=== PATIENT | male | born 1940 | race Caucasian/White ===

== ENCOUNTER 2016-12-18 20:55 | Inpatient (IN) | payer MEDICARE ==
[~2016-12-18] VITALS: Ht 170.2 cm; Wt 74.5 kg
[~2016-12-18 20:55] MED LIST: DILTIAZEM120 M1 PO; KEFLEX500 M1 PO; LEVOTHYROXIN50 MC1 PO; ROBITUSSIN AC10 ML PO; ULTRAM50 MG OR
[2016-12-18 21:27] LABS: HEMATOCRIT 38.7 % (39.0-50.0); HEMOGLOBIN 14.4 g/dl (14.0-18.0); IMMATURE GRANULOCYTES 0.6 % (0.0-1.0); MEAN CELL VOLUME 98.2 fL CALC (80.0-100.0); MEAN CORPUSCULAR HGB 36.5 pG CALC (26.0-32.0); MEAN CORPUSCULAR HGB CONC 37.2 g/L CALC (32.0-36.0); NEUT# 3.34 thou/uL (1.82-7.42); RED BLOOD COUNT 3.94 mill/uL (4.70-6.10); RED CELL DISTRI WIDTH 13.4 % (11.5-15.5)
[2016-12-18 22:29] LABS: ACT PARTIAL THROMBO TIME 34.1 SECONDS (20.0-32.5); INTERNATIONAL NORMALIZED RATIO 1.1 RATIO (0.7-1.3); PROTHROMBIN TIME 12.3 SECONDS (9.0-12.5)
[2016-12-18 22:43] LABS: ALBUMIN 3.9 g/dL (3.2-5.0); ALKALINE PHOSPHATASE 66 u/l (38-126); ANION GAP 17 (6-22 (CALC)); BILIRUBIN, TOTAL 1.8 mg/dL (0.0-1.4); BUN 6 mg/dL (8-23); BUN/CREATININE RATIO 9 (12-20 (CALC)); CALCIUM 9.2 mg/dL (8.4-10.2); CARBON DIOXIDE 24 mmol/l (22-30); CHLORIDE 87 mmol/l (95-108); CREATININE 0.7 mg/dL (0.7-1.3); GFR > 60 ML/MIN (>=60 (CALC)); GFR FOR AFR.AMER. > 60 ML/MIN (>=60 (CALC)); GLUCOSE 87 mg/dL (82-115); POTASSIUM 4.3 mmol/l (3.5-5.1); SGOT/AST 50 u/l (19-48); SGPT/ALT 40 u/l (11-66); SODIUM 124 mmol/l (137-146); TOTAL PROTEIN 6.5 g/dL (6.3-8.2)
[2016-12-18 22:55] LABS: MYOGLOBIN 43 ng/mL (0 - 121)
[2016-12-18] MEDS ORDERED: SYMBICORT1 AE1 IN (22:57)
[2016-12-18] MEDS ORDERED: COMBIVENT RESPIMAT IN (22:58)
[2016-12-18] MEDS ORDERED: MEGESTROL AC20 MG PO (22:58)
[2016-12-18] MEDS ORDERED: METOPROL TAR25 MG PO (22:59)
[2016-12-18 23:55] VITALS: BP 118/74
[2016-12-19 04:05] VITALS: BP 130/86
[2016-12-19 08:24] VITALS: BP 92/55
[2016-12-19 11:14] LABS: HEMATOCRIT 41.2 % (39.0-50.0); HEMOGLOBIN 14.6 g/dl (14.0-18.0); MEAN CORPUSCULAR HGB 35.8 pG CALC (26.0-32.0); MEAN CORPUSCULAR HGB CONC 35.4 g/L CALC (32.0-36.0); RED BLOOD COUNT 4.08 mill/uL (4.70-6.10); RED CELL DISTRI WIDTH 13.4 % (11.5-15.5)
[2016-12-19 11:15] VITALS: BP 93/67
[2016-12-19 11:22] LABS: ALKALINE PHOSPHATASE 63 u/l (38-126); ANION GAP 21 (6-22 (CALC)); BILIRUBIN, TOTAL 1.4 mg/dL (0.0-1.4); BUN 9 mg/dL (8-23); BUN/CREATININE RATIO 12 (12-20 (CALC)); CALCIUM 9.1 mg/dL (8.4-10.2); CARBON DIOXIDE 19 mmol/l (22-30); CHLORIDE 91 mmol/l (95-108); CREATININE 0.7 mg/dL (0.7-1.3); GFR > 60 ML/MIN (>=60 (CALC)); GFR FOR AFR.AMER. > 60 ML/MIN (>=60 (CALC)); GLUCOSE 169 mg/dL (82-115); POTASSIUM 4.4 mmol/l (3.5-5.1); SGOT/AST 51 u/l (19-48); SGPT/ALT 37 u/l (11-66); SODIUM 127 mmol/l (137-146); TOTAL PROTEIN 6.7 g/dL (6.3-8.2)
[2016-12-19 14:45] LABS: TSH, 3RD GENERATION 5.08 uIU/mL (0.47 - 4.68)
[2016-12-19 16:07] VITALS: BP 95/69
[2016-12-19 18:55] VITALS: BP 102/62
[2016-12-20 00:02] VITALS: BP 130/72
[2016-12-20 04:59] LABS: URINE BILIRUBIN - DIPSTICK NEGATIVE (NEGATIVE); URINE BLOOD DIPSTICK TRACE-INTACT (NEGATIVE); URINE CLARITY CLEAR; URINE COLOR YELLOW; URINE GLUCOSE - DIPSTICK >=1000 mg/dL (NEGATIVE); URINE KETONE NEGATIVE (NEGATIVE); URINE LEUK ESTERASE NEGATIVE (NEGATIVE); URINE NITRITE - DIPSTICK NEGATIVE (Negative); URINE PROTEIN - DIPSTICK NEGATIVE (NEG-TRACE); URINE SPECIFIC GRAVITY <=1.005; URINE UROBILINOGEN - DIPSTICK 0.2 E.U./dL (0.2)
[2016-12-20 05:07] LABS: BUN 13 mg/dL (8-23); BUN/CREATININE RATIO 18 (12-20 (CALC)); CALCIUM 9.5 mg/dL (8.4-10.2); CARBON DIOXIDE 22 mmol/l (22-30); CREATININE 0.7 mg/dL (0.7-1.3); GFR > 60 ML/MIN (>=60 (CALC)); GFR FOR AFR.AMER. > 60 ML/MIN (>=60 (CALC)); GLUCOSE 235 mg/dL (82-115); SODIUM 134 mmol/l (137-146)
[2016-12-20 05:09] LABS: IMMATURE GRANULOCYTES 0.7 % (0.0-1.0); MEAN CELL VOLUME 99.2 fL CALC (80.0-100.0); MEAN CORPUSCULAR HGB 35.8 pG CALC (26.0-32.0); MEAN CORPUSCULAR HGB CONC 36.1 g/L CALC (32.0-36.0); NEUT# 5.96 thou/uL (1.82-7.42); RED BLOOD COUNT 3.63 mill/uL (4.70-6.10); RED CELL DISTRI WIDTH 13.2 % (11.5-15.5)
[2016-12-20 05:19] LABS: ANION GAP 15 (6-22 (CALC)); CHLORIDE 101 mmol/l (95-108)
[2016-12-20 05:20] VITALS: BP 104/62
[2016-12-20 07:50] VITALS: BP 100/68
[2016-12-20 11:11] VITALS: BP 118/74
[2016-12-20 11:59] VITALS: BP 118/74
[2016-12-20] MEDS ORDERED: DOXYCYC MONO100 M2 PO (12:30)
[2016-12-20] MEDS ORDERED: CARDIZEM CD240 MG PO (12:31)
[2016-12-20] MEDS ORDERED: PREDNISONE10 MG PO (12:32)
[2016-12-20] MEDS ORDERED: LEVOTHYROXIN50 MCG PO (12:41)
== END 2016-12-20 15:15 | disposition home or self-care (01) | DRG 191 ==
LOC: ENPENDDIS → ED 20:55 → ED-I 23:05 → ED 23:36 → MS2 23:37
PROVIDERS: Emergency Medicine; ADMIT Internal Medicine; ATTEND Internal Medicine
DX: J44.1 Chronic obstructive pulmonary disease with (acute) exacerbation (principal); E87.1 Hypo-osmolality and hyponatremia; I10 Essential (primary) hypertension; I25.10 Atherosclerotic heart disease of native coronary artery without angina pectoris; E03.9 Hypothyroidism, unspecified; Z87.891 Personal history of nicotine dependence

== ENCOUNTER 2017-01-03 12:28 | Inpatient (IN) | payer MEDICARE ==
[~2017-01-03] VITALS: Ht 170.2 cm; Wt 66.3 kg
[~2017-01-03 12:28] MED LIST changes: +CARDIZEM CD240 MG PO; +COMBIVENT RESPIMAT IN; +DOXYCYC MONO100 M2 PO; +LEVOTHYROXIN50 MCG PO; +MEGESTROL AC20 MG PO; +METOPROL TAR25 MG PO; +PREDNISONE10 MG PO; +SYMBICORT1 AE1 IN
[2017-01-03 13:10] LABS: HEMATOCRIT 39.8 % (39.0-50.0); HEMOGLOBIN 14.1 g/dl (14.0-18.0); MEAN CORPUSCULAR HGB 35.4 pG CALC (26.0-32.0); MEAN CORPUSCULAR HGB CONC 35.4 g/L CALC (32.0-36.0); NEUT# 2.62 thou/uL (1.82-7.42); RED BLOOD COUNT 3.98 mill/uL (4.70-6.10); RED CELL DISTRI WIDTH 13.3 % (11.5-15.5)
[2017-01-03 13:24] LABS: ALBUMIN 3.5 g/dL (3.2-5.0); ALKALINE PHOSPHATASE 126 u/l (38-126); ANION GAP 18 (6-22 (CALC)); BILIRUBIN, TOTAL 1.8 mg/dL (0.0-1.4); BUN 26 mg/dL (8-23); BUN/CREATININE RATIO 29 (12-20 (CALC)); CALCIUM 10.4 mg/dL (8.4-10.2); CARBON DIOXIDE 20 mmol/l (22-30); CHLORIDE 104 mmol/l (95-108); CREATININE 0.9 mg/dL (0.7-1.3); GFR > 60 ML/MIN (>=60 (CALC)); GFR FOR AFR.AMER. > 60 ML/MIN (>=60 (CALC)); GLUCOSE 92 mg/dL (82-115); POTASSIUM 3.6 mmol/l (3.5-5.1); SGOT/AST 76 u/l (19-48); SGPT/ALT 100 u/l (11-66); SODIUM 138 mmol/l (137-146); TOTAL PROTEIN 6.4 g/dL (6.3-8.2)
[2017-01-03 13:35] LABS: MYOGLOBIN 55 ng/mL (0 - 121)
[2017-01-03 13:50] LABS: URINE BLOOD DIPSTICK NEGATIVE (NEGATIVE); URINE CLARITY CLEAR; URINE COLOR YELLOW; URINE GLUCOSE - DIPSTICK NEGATIVE (NEGATIVE); URINE KETONE 15 mg/dL (NEGATIVE); URINE LEUK ESTERASE NEGATIVE (NEGATIVE); URINE NITRITE - DIPSTICK NEGATIVE (Negative); URINE PROTEIN - DIPSTICK TRACE mg/dL (NEG-TRACE)
[2017-01-03 13:51] LABS: URINE BILIRUBIN - DIPSTICK MODERATE (NEGATIVE)
[2017-01-03 15:34] LABS: TSH, 3RD GENERATION 7.74 uIU/mL (0.47 - 4.68)
[2017-01-03 16:01] VITALS: BP 100/60
[2017-01-03 19:36] VITALS: BP 96/58
[2017-01-04 00:08] VITALS: BP 113/68
[2017-01-04 04:46] VITALS: BP 114/72
[2017-01-04 07:37] VITALS: BP 96/69
[2017-01-04 12:28] VITALS: BP 105/63
[2017-01-04 16:10] VITALS: BP 103/67
[2017-01-04 19:03] VITALS: BP 97/64
[2017-01-05 01:27] VITALS: BP 110/67
[2017-01-05 07:00] VITALS: BP 97/65
[2017-01-05 07:41] LABS: HEMATOCRIT 39.6 % (39.0-50.0); IMMATURE GRANULOCYTES 0.9 % (0.0-1.0); MEAN CELL VOLUME 100.5 fL CALC (80.0-100.0); MEAN CORPUSCULAR HGB 35.5 pG CALC (26.0-32.0); MEAN CORPUSCULAR HGB CONC 35.4 g/L CALC (32.0-36.0); NEUT# 3.67 thou/uL (1.82-7.42); RED BLOOD COUNT 3.94 mill/uL (4.70-6.10); RED CELL DISTRI WIDTH 13.1 % (11.5-15.5)
[2017-01-05 07:51] LABS: ANION GAP 16 (6-22 (CALC)); BUN 19 mg/dL (8-23); BUN/CREATININE RATIO 25 (12-20 (CALC)); CALCIUM 10.1 mg/dL (8.4-10.2); CARBON DIOXIDE 22 mmol/l (22-30); CHLORIDE 104 mmol/l (95-108); CREATININE 0.8 mg/dL (0.7-1.3); GFR > 60 ML/MIN (>=60 (CALC)); GFR FOR AFR.AMER. > 60 ML/MIN (>=60 (CALC)); GLUCOSE 160 mg/dL (82-115); POTASSIUM 4.3 mmol/l (3.5-5.1); SODIUM 138 mmol/l (137-146)
[2017-01-05 08:33] VITALS: BP 104/67
[2017-01-05 11:04] VITALS: BP 100/72
[2017-01-05 15:32] VITALS: BP 98/64
[2017-01-05] MEDS ORDERED: XARELTO10 MG PO (16:28)
[2017-01-05] MEDS ORDERED: XANAX0.25 MG PO (16:30)
[2017-01-05 19:32] VITALS: BP 93/58
[2017-01-06] VITALS: BP 115/65
[2017-01-06 04:46] VITALS: BP 105/68
[2017-01-06 07:53] VITALS: BP 115/65
[2017-01-06 12:56] VITALS: BP 104/72
[2017-01-06 16:20] VITALS: BP 97/66
[2017-01-06 20:50] VITALS: BP 90/56
[2017-01-07 05:00] VITALS: BP 100/59
[2017-01-07 08:13] VITALS: BP 109/53
[2017-01-07] MEDS ORDERED: GUAIFENESI100 MG/51 PO (10:45)
[2017-01-07] MEDS ORDERED: LIBRIUM25 M1 PO (10:45)
[2017-01-07] MEDS ORDERED: ZITHROMAX500 MG PO (10:45)
[2017-01-07] MEDS ORDERED: XANAX0.25 MG PO (10:45)
[2017-01-07] MEDS ORDERED: PREDNISONE10 MG PO (10:47)
== END 2017-01-07 14:00 | DRG 191 ==
LOC: ENPENDDIS → ED 12:28 → ED-I 14:15 → ED 14:53 → MS2 14:54
PROVIDERS: Emergency Medicine; Internal Medicine; ADMIT Internal Medicine; ATTEND Internal Medicine
DX: J44.1 Chronic obstructive pulmonary disease with (acute) exacerbation (principal); F10.239 Alcohol dependence with withdrawal, unspecified; I10 Essential (primary) hypertension; E03.9 Hypothyroidism, unspecified; I25.10 Atherosclerotic heart disease of native coronary artery without angina pectoris; F17.220 Nicotine dependence, chewing tobacco, uncomplicated; Z79.01 Long term (current) use of anticoagulants; Z91.81 History of falling
CPT/HCPCS: G0378

== ENCOUNTER 2019-04-13 16:41 | Inpatient (IN) | payer OTHER, MEDICARE ==
[2019-04-13] VITALS (7 sets, daily range): BP systolic 111–125; BP diastolic 49–64
[~2019-04-13] VITALS: Ht 170.2 cm; Wt 81.6 kg
[~2019-04-13 16:41] MED LIST changes: +GUAIFENESI100 MG/51 PO; +LIBRIUM25 M1 PO; +XANAX0.25 MG PO; +XARELTO10 MG PO; +ZITHROMAX500 MG PO
[2019-04-13 17:39] LABS: HEMATOCRIT 38.1 % (39.0-50.0); IMMATURE GRANULOCYTES 0.4 % (0.0-5.0); MEAN CORPUSCULAR HGB 26.5 pG CALC (26.0-32.0); MEAN CORPUSCULAR HGB CONC 31.5 g/L CALC (32.0-36.0); NEUT# 10.26 thou/uL (1.82-7.42); RED BLOOD COUNT 4.52 mill/uL (4.70-6.10); RED CELL DISTRI WIDTH 14.6 % (11.5-15.5)
[2019-04-13 17:43] LABS: MEAN CELL VOLUME 84.3 fL CALC (80.0-100.0)
[2019-04-13 18:12] LABS: INTERNATIONAL NORMALIZED RATIO 1.3 RATIO (0.7-1.3); PROTHROMBIN TIME 13.4 SECONDS (9.0-12.5)
[2019-04-13 18:23] LABS: ALKALINE PHOSPHATASE 71 u/l (38-126); ANION GAP 19 (6-22 (CALC)); BILIRUBIN, TOTAL 1.3 mg/dL (0.0-1.4); BUN 15 mg/dL (8-23); BUN/CREATININE RATIO 13 (12-20 (CALC)); CARBON DIOXIDE 23 mmol/l (22-30); CHLORIDE 99 mmol/l (95-108); CREATININE 1.1 mg/dL (0.7-1.3); GFR > 60 ML/MIN (>=60 (CALC)); GFR FOR AFR.AMER. > 60 ML/MIN (>=60 (CALC)); POTASSIUM 4.2 mmol/l (3.5-5.1); SGOT/AST 22 u/l (19-48); SODIUM 137 mmol/l (137-146); TOTAL PROTEIN 7.4 g/dL (6.3-8.2)
[2019-04-13 18:26] LABS: ALBUMIN 4.4 g/dL (3.2-5.0)
[2019-04-13 18:31] LABS: MYOGLOBIN 141 ng/mL (0 - 121)
[2019-04-13] MEDS ORDERED: TAMSULOSIN HCL0.4 MG PO (19:00)
[2019-04-13] MEDS ORDERED: FINASTERIDE5 MG PO (19:00)
[2019-04-13] MEDS ORDERED: LEVOTHYROXIN75 MCG PO (19:00)
[2019-04-13] MEDS ORDERED: PREDNISONE50 MG PO (19:37)
[2019-04-13] MEDS ORDERED: DOXYCYCL HYC100 MG PO (19:37)
[2019-04-13 22:41] LABS: URINE BILIRUBIN - DIPSTICK NEGATIVE (NEGATIVE); URINE BLOOD DIPSTICK TRACE-LYSED (NEGATIVE); URINE COLOR YELLOW; URINE GLUCOSE - DIPSTICK NEGATIVE (NEGATIVE); URINE KETONE NEGATIVE (NEGATIVE); URINE LEUK ESTERASE NEGATIVE (NEGATIVE); URINE NITRITE - DIPSTICK NEGATIVE (Negative); URINE PROTEIN - DIPSTICK TRACE mg/dL (NEG-TRACE); URINE SPECIFIC GRAVITY <=1.005; URINE UROBILINOGEN - DIPSTICK 0.2 E.U./dL (0.2)
[2019-04-14] VITALS (34 sets, daily range): BP systolic 98–136; BP diastolic 48–73
[2019-04-15] VITALS (8 sets, daily range): BP systolic 105–151; BP diastolic 64–78
[2019-04-15 05:45] LABS: MEAN CELL VOLUME 85.9 fL CALC (80.0-100.0); MEAN CORPUSCULAR HGB 26.9 pG CALC (26.0-32.0); MEAN CORPUSCULAR HGB CONC 31.3 g/L CALC (32.0-36.0); RED BLOOD COUNT 3.68 mill/uL (4.70-6.10); RED CELL DISTRI WIDTH 14.3 % (11.5-15.5)
[2019-04-15 05:59] LABS: HEMATOCRIT 31.6 % (39.0-50.0); HEMOGLOBIN 9.9 g/dl (14.0-18.0)
[2019-04-15 06:12] LABS: ANION GAP 14 (6-22 (CALC)); BUN 17 mg/dL (8-23); BUN/CREATININE RATIO 18 (12-20 (CALC)); CARBON DIOXIDE 26 mmol/l (22-30); CHLORIDE 106 mmol/l (95-108); CREATININE 0.9 mg/dL (0.7-1.3); GFR > 60 ML/MIN (>=60 (CALC)); GFR FOR AFR.AMER. > 60 ML/MIN (>=60 (CALC)); POTASSIUM 4.1 mmol/l (3.5-5.1); SODIUM 141 mmol/l (137-146)
[2019-04-16] VITALS (8 sets, daily range): BP systolic 99–160; BP diastolic 57–85
[2019-04-16 07:13] LABS: HEMATOCRIT 29.2 % (39.0-50.0); IMMATURE GRANULOCYTES 0.7 % (0.0-5.0); MEAN CELL VOLUME 86.6 fL CALC (80.0-100.0); MEAN CORPUSCULAR HGB 26.7 pG CALC (26.0-32.0); MEAN CORPUSCULAR HGB CONC 30.8 g/L CALC (32.0-36.0); RED BLOOD COUNT 3.37 mill/uL (4.70-6.10); RED CELL DISTRI WIDTH 14.3 % (11.5-15.5)
[2019-04-16 07:36] LABS: BUN 24 mg/dL (8-23); BUN/CREATININE RATIO 34 (12-20 (CALC)); CARBON DIOXIDE 29 mmol/l (22-30); CREATININE 0.7 mg/dL (0.7-1.3); GFR > 60 ML/MIN (>=60 (CALC)); GFR FOR AFR.AMER. > 60 ML/MIN (>=60 (CALC)); SODIUM 140 mmol/l (137-146)
[2019-04-16 07:38] LABS: ANION GAP 9 (6-22 (CALC)); CHLORIDE 106 mmol/l (95-108)
[2019-04-17] VITALS (12 sets, daily range): BP systolic 101–151; BP diastolic 59–83
[2019-04-17 05:18] LABS: HEMATOCRIT 26.7 % (39.0-50.0); HEMOGLOBIN 8.4 g/dl (14.0-18.0); IMMATURE GRANULOCYTES 0.6 % (0.0-5.0); MEAN CELL VOLUME 86.1 fL CALC (80.0-100.0); MEAN CORPUSCULAR HGB 27.1 pG CALC (26.0-32.0); MEAN CORPUSCULAR HGB CONC 31.5 g/L CALC (32.0-36.0); NEUT# 3.16 thou/uL (1.82-7.42); RED BLOOD COUNT 3.1 mill/uL (4.70-6.10); RED CELL DISTRI WIDTH 14.3 % (11.5-15.5)
[2019-04-17 06:05] LABS: ALKALINE PHOSPHATASE 42 u/l (38-126); ANION GAP 8 (6-22 (CALC)); BUN 23 mg/dL (8-23); BUN/CREATININE RATIO 33 (12-20 (CALC)); CARBON DIOXIDE 28 mmol/l (22-30); CHLORIDE 107 mmol/l (95-108); CREATININE 0.7 mg/dL (0.7-1.3); GFR > 60 ML/MIN (>=60 (CALC)); GFR FOR AFR.AMER. > 60 ML/MIN (>=60 (CALC)); POTASSIUM 4.1 mmol/l (3.5-5.1); SODIUM 140 mmol/l (137-146)
[2019-04-17 06:10] LABS: ALBUMIN 3.1 g/dL (3.2-5.0); BILIRUBIN, TOTAL 0.5 mg/dL (0.0-1.4); SGOT/AST 46 u/l (19-48); TOTAL PROTEIN 5.6 g/dL (6.3-8.2)
[2019-04-17 13:52] LABS: HEMATOCRIT 30.3 % (39.0-50.0); HEMOGLOBIN 9.4 g/dl (14.0-18.0)
[2019-04-18] VITALS (8 sets, daily range): BP systolic 117–153; BP diastolic 62–85
[2019-04-18 05:17] LABS: HEMATOCRIT 26.6 % (39.0-50.0); HEMOGLOBIN 8.3 g/dl (14.0-18.0); MEAN CELL VOLUME 85.5 fL CALC (80.0-100.0); MEAN CORPUSCULAR HGB 26.7 pG CALC (26.0-32.0); MEAN CORPUSCULAR HGB CONC 31.2 g/L CALC (32.0-36.0); RED BLOOD COUNT 3.11 mill/uL (4.70-6.10); RED CELL DISTRI WIDTH 14.1 % (11.5-15.5)
[2019-04-18 05:39] LABS: ANION GAP 10 (6-22 (CALC)); BUN 27 mg/dL (8-23); BUN/CREATININE RATIO 31 (12-20 (CALC)); CARBON DIOXIDE 31 mmol/l (22-30); CHLORIDE 102 mmol/l (95-108); CREATININE 0.9 mg/dL (0.7-1.3); GFR > 60 ML/MIN (>=60 (CALC)); GFR FOR AFR.AMER. > 60 ML/MIN (>=60 (CALC)); POTASSIUM 3.7 mmol/l (3.5-5.1); SODIUM 140 mmol/l (137-146)
[2019-04-18 13:31] LABS: HEMATOCRIT 29.2 % (39.0-50.0); HEMOGLOBIN 9.1 g/dl (14.0-18.0)
[2019-04-19 00:25] VITALS: BP 132/69
[2019-04-19 04:39] VITALS: BP 117/56
[2019-04-19 05:16] LABS: HEMATOCRIT 27.8 % (39.0-50.0); HEMOGLOBIN 8.7 g/dl (14.0-18.0); MEAN CELL VOLUME 85.8 fL CALC (80.0-100.0); MEAN CORPUSCULAR HGB 26.9 pG CALC (26.0-32.0); MEAN CORPUSCULAR HGB CONC 31.3 g/L CALC (32.0-36.0); RED BLOOD COUNT 3.24 mill/uL (4.70-6.10); RED CELL DISTRI WIDTH 13.8 % (11.5-15.5)
[2019-04-19 08:15] VITALS: BP 131/74
[2019-04-19 16:00] VITALS: BP 156/85
[2019-04-19 19:30] VITALS: BP 132/62
[2019-04-20 00:39] VITALS: BP 116/68
[2019-04-20 04:45] VITALS: BP 139/81
[2019-04-20 05:12] LABS: HEMATOCRIT 28.6 % (39.0-50.0); HEMOGLOBIN 8.9 g/dl (14.0-18.0); MEAN CELL VOLUME 85.9 fL CALC (80.0-100.0); MEAN CORPUSCULAR HGB 26.7 pG CALC (26.0-32.0); MEAN CORPUSCULAR HGB CONC 31.1 g/L CALC (32.0-36.0); RED BLOOD COUNT 3.33 mill/uL (4.70-6.10); RED CELL DISTRI WIDTH 14.1 % (11.5-15.5)
[2019-04-20 05:27] LABS: ANION GAP 11 (6-22 (CALC)); BUN 15 mg/dL (8-23); BUN/CREATININE RATIO 19 (12-20 (CALC)); CARBON DIOXIDE 31 mmol/l (22-30); CHLORIDE 102 mmol/l (95-108); CREATININE 0.8 mg/dL (0.7-1.3); GFR > 60 ML/MIN (>=60 (CALC)); GFR FOR AFR.AMER. > 60 ML/MIN (>=60 (CALC)); POTASSIUM 4.4 mmol/l (3.5-5.1); SODIUM 139 mmol/l (137-146)
[2019-04-20 10:41] VITALS: BP 139/62
[2019-04-20 19:17] VITALS: BP 126/81
[2019-04-20 23:49] VITALS: BP 110/62
[2019-04-21 05:04] VITALS: BP 132/81
[2019-04-21 07:44] VITALS: BP 143/76
[2019-04-21 08:44] LABS: HEMATOCRIT 29.8 % (39.0-50.0); HEMOGLOBIN 9.1 g/dl (14.0-18.0); MEAN CELL VOLUME 86.6 fL CALC (80.0-100.0); MEAN CORPUSCULAR HGB 26.5 pG CALC (26.0-32.0); MEAN CORPUSCULAR HGB CONC 30.5 g/L CALC (32.0-36.0); RED BLOOD COUNT 3.44 mill/uL (4.70-6.10); RED CELL DISTRI WIDTH 14.4 % (11.5-15.5)
[2019-04-21 09:27] LABS: ANION GAP 10 (6-22 (CALC)); BUN 15 mg/dL (8-23); BUN/CREATININE RATIO 20 (12-20 (CALC)); CARBON DIOXIDE 31 mmol/l (22-30); CHLORIDE 102 mmol/l (95-108); CREATININE 0.8 mg/dL (0.7-1.3); GFR > 60 ML/MIN (>=60 (CALC)); GFR FOR AFR.AMER. > 60 ML/MIN (>=60 (CALC)); POTASSIUM 4.2 mmol/l (3.5-5.1); SODIUM 138 mmol/l (137-146)
[2019-04-21 11:16] VITALS: BP 118/74
[2019-04-21] MEDS ORDERED: PANTOPRAZOLE SO40 M1 PO (11:57)
[2019-04-21] MEDS ORDERED: PREDNISONE10 MG PO (11:57)
[2019-04-21] MEDS ORDERED: OMNICEF300 MG PO (11:57)
== END 2019-04-21 13:58 | DRG 871 ==
LOC: ED 16:41 → ED-I 19:45 → ED 21:20 → ICU 21:21 → MS2 21:21 → ICU 04-18 11:09 → MS2 04-21 13:58
PROVIDERS: Emergency Medicine; Internal Medicine; Nurse Practitioner Family; ADMIT Internal Medicine; ATTEND Internal Medicine
PROC: 5A09357 Assistance with Respiratory Ventilation, Less than 24 Consecutive Hours, Continuous Positive Airway Pressure (ICD-10-PCS; principal; 2019-04-13)
PROC: 0T9B70Z Drainage of Bladder with Drainage Device, Via Natural or Artificial Opening (ICD-10-PCS; 2019-04-14)
PROC: 3E0234Z Introduction of Serum, Toxoid and Vaccine into Muscle, Percutaneous Approach (ICD-10-PCS; 2019-04-15)
DX: A41.9 Sepsis, unspecified organism (principal); J96.02 Acute respiratory failure with hypercapnia; J96.01 Acute respiratory failure with hypoxia; J15.5 Pneumonia due to Escherichia coli; J44.0 Chronic obstructive pulmonary disease with (acute) lower respiratory infection; J44.1 Chronic obstructive pulmonary disease with (acute) exacerbation; E87.2 Acidosis; K92.2 Gastrointestinal hemorrhage, unspecified; K56.7 Ileus, unspecified; Z16.24 Resistance to multiple antibiotics; R65.20 Severe sepsis without septic shock; I95.9 Hypotension, unspecified; I10 Essential (primary) hypertension; I48.0 Paroxysmal atrial fibrillation; D50.0 Iron deficiency anemia secondary to blood loss (chronic); I25.10 Atherosclerotic heart disease of native coronary artery without angina pectoris; E03.9 Hypothyroidism, unspecified; N40.0 Benign prostatic hyperplasia without lower urinary tract symptoms; K57.30 Diverticulosis of large intestine without perforation or abscess without bleeding; K80.20 Calculus of gallbladder without cholecystitis without obstruction; F17.220 Nicotine dependence, chewing tobacco, uncomplicated; Z23 Encounter for immunization; Z87.01 Personal history of pneumonia (recurrent); Z79.01 Long term (current) use of anticoagulants
CPT/HCPCS: G0328; J0692; J1756; Q9967; S0164

== ENCOUNTER 2020-10-08 | Inpatient (IN) | payer OTHER, MEDICARE ==
[2020-10-07 21:23] LABS: HEMATOCRIT 35.2 % (39.0-50.0); HEMOGLOBIN 10.4 g/dl (14.0-18.0); IMMATURE GRANULOCYTES 0.5 % (0.0-5.0); MEAN CELL VOLUME 82.8 fL CALC (80.0-100.0); MEAN CORPUSCULAR HGB 24.5 pG CALC (26.0-32.0); MEAN CORPUSCULAR HGB CONC 29.5 g/dL CAL (32.0-36.0); NEUT# 6.72 thou/uL (1.82-7.42); RED BLOOD COUNT 4.25 mill/uL (4.70-6.10); RED CELL DISTRI WIDTH 15.8 % (11.5-15.5)
[2020-10-07 21:41] LABS: INTERNATIONAL NORMALIZED RATIO 1.3 RATIO (0.7-1.3); PROTHROMBIN TIME 12.7 SECONDS (9.0-12.5)
[2020-10-07 21:42] LABS: ALBUMIN 3.8 g/dL (3.2-5.0); ALKALINE PHOSPHATASE 64 u/l (38-126); ANION GAP 13 (6-22 (CALC)); BILIRUBIN, TOTAL 0.9 mg/dL (0.0-1.4); BUN 18 mg/dL (8-23); BUN/CREATININE RATIO 19 (12-20 (CALC)); CARBON DIOXIDE 25 mmol/l (22-30); CHLORIDE 102 mmol/l (95-108); GFR > 60 ML/MIN (>=60 (CALC)); GFR FOR AFR.AMER. > 60 ML/MIN (>=60 (CALC)); SGOT/AST 25 u/l (19-48); SODIUM 136 mmol/l (137-146); TOTAL PROTEIN 6.4 g/dL (6.3-8.2)
[2020-10-07 21:55] LABS: MYOGLOBIN 112 ng/mL (0 - 121)
[2020-10-08] VITALS (15 sets, daily range): BP systolic 83–142; BP diastolic 51–68
[~2020-10-08] MED LIST changes: +DOXYCYCL HYC100 MG PO; +FINASTERIDE5 MG PO; +LEVOTHYROXIN75 MCG PO; +OMNICEF300 MG PO; +PANTOPRAZOLE SO40 M1 PO; +PREDNISONE50 MG PO; +TAMSULOSIN HCL0.4 MG PO
[2020-10-08 05:40] LABS: IMMATURE GRANULOCYTES 0.3 % (0.0-5.0); MEAN CELL VOLUME 83.6 fL CALC (80.0-100.0); MEAN CORPUSCULAR HGB 24.3 pG CALC (26.0-32.0); NEUT# 8.45 thou/uL (1.82-7.42); RED BLOOD COUNT 3.71 mill/uL (4.70-6.10); RED CELL DISTRI WIDTH 15.9 % (11.5-15.5)
[2020-10-08 05:45] LABS: ALKALINE PHOSPHATASE 48 u/l (38-126); ANION GAP 10 (6-22 (CALC)); BILIRUBIN, TOTAL 0.8 mg/dL (0.0-1.4); BUN 18 mg/dL (8-23); BUN/CREATININE RATIO 20 (12-20 (CALC)); CARBON DIOXIDE 24 mmol/l (22-30); CHLORIDE 107 mmol/l (95-108); CREATININE 0.9 mg/dL (0.7-1.3); GFR > 60 ML/MIN (>=60 (CALC)); GFR FOR AFR.AMER. > 60 ML/MIN (>=60 (CALC)); POTASSIUM 4.1 mmol/l (3.5-5.1); SGOT/AST 22 u/l (19-48); SODIUM 137 mmol/l (137-146); TOTAL PROTEIN 5.2 g/dL (6.3-8.2)
[2020-10-08 06:11] LABS: URINE BILIRUBIN - DIPSTICK NEGATIVE (NEGATIVE); URINE BLOOD DIPSTICK NEGATIVE (NEGATIVE); URINE COLOR YELLOW; URINE GLUCOSE - DIPSTICK NEGATIVE (NEGATIVE); URINE KETONE NEGATIVE (NEGATIVE); URINE LEUK ESTERASE NEGATIVE (NEGATIVE); URINE PROTEIN - DIPSTICK NEGATIVE (NEG-TRACE); URINE SPECIFIC GRAVITY 1.015; URINE UROBILINOGEN - DIPSTICK 0.2 E.U./dL (0.2)
[2020-10-08 06:18] LABS: URINE NITRITE - DIPSTICK NEGATIVE (Negative)
[2020-10-08] MEDS ORDERED: OMEPRAZOLE DR40 MG PO (07:09)
[2020-10-08] MEDS ORDERED: LEVOTHYROXIN100 MC1 PO (07:09)
[2020-10-08] MEDS ORDERED: DILTIAZEM HCL240 M1 PO (10:51)
[2020-10-08] MEDS ORDERED: B-121000 MC4 PO (10:53)
[2020-10-08] MEDS ORDERED: GARLIC1000 MG PO (10:54)
[2020-10-08] MEDS ORDERED: MILK THISTLE175 M1 PO (10:55)
[2020-10-08] MEDS ORDERED: ONE DAILY FOR MEN 50 PO (10:57)
[2020-10-09] VITALS (10 sets, daily range): BP systolic 119–161; BP diastolic 58–88
[2020-10-09 05:44] LABS: HEMATOCRIT 28.4 % (39.0-50.0); HEMOGLOBIN 8.5 g/dl (14.0-18.0); IMMATURE GRANULOCYTES 0.9 % (0.0-5.0); MEAN CELL VOLUME 82.6 fL CALC (80.0-100.0); MEAN CORPUSCULAR HGB 24.7 pG CALC (26.0-32.0); MEAN CORPUSCULAR HGB CONC 29.9 g/dL CAL (32.0-36.0); NEUT# 4.17 thou/uL (1.82-7.42); RED BLOOD COUNT 3.44 mill/uL (4.70-6.10); RED CELL DISTRI WIDTH 15.6 % (11.5-15.5)
[2020-10-09 06:04] LABS: ALBUMIN 3.1 g/dL (3.2-5.0); ALKALINE PHOSPHATASE 49 u/l (38-126); ANION GAP 11 (6-22 (CALC)); BILIRUBIN, TOTAL 0.5 mg/dL (0.0-1.4); BUN 16 mg/dL (8-23); BUN/CREATININE RATIO 22 (12-20 (CALC)); CARBON DIOXIDE 24 mmol/l (22-30); CHLORIDE 105 mmol/l (95-108); CREATININE 0.7 mg/dL (0.7-1.3); GFR > 60 ML/MIN (>=60 (CALC)); GFR FOR AFR.AMER. > 60 ML/MIN (>=60 (CALC)); POTASSIUM 3.8 mmol/l (3.5-5.1); SGOT/AST 16 u/l (19-48); SODIUM 136 mmol/l (137-146); TOTAL PROTEIN 5.4 g/dL (6.3-8.2)
[2020-10-10 00:05] VITALS: BP 130/71
[2020-10-10 04:00] VITALS: BP 144/68
[2020-10-10 05:35] LABS: HEMATOCRIT 27.7 % (39.0-50.0); HEMOGLOBIN 8.3 g/dl (14.0-18.0); IMMATURE GRANULOCYTES 0.5 % (0.0-5.0); MEAN CELL VOLUME 82.7 fL CALC (80.0-100.0); MEAN CORPUSCULAR HGB 24.8 pG CALC (26.0-32.0); NEUT# 3.89 thou/uL (1.82-7.42); RED BLOOD COUNT 3.35 mill/uL (4.70-6.10); RED CELL DISTRI WIDTH 15.9 % (11.5-15.5)
[2020-10-10 05:57] LABS: ALBUMIN 3.2 g/dL (3.2-5.0); ALKALINE PHOSPHATASE 46 u/l (38-126); ANION GAP 13 (6-22 (CALC)); BILIRUBIN, TOTAL 0.5 mg/dL (0.0-1.4); BUN 19 mg/dL (8-23); BUN/CREATININE RATIO 24 (12-20 (CALC)); CARBON DIOXIDE 25 mmol/l (22-30); CHLORIDE 103 mmol/l (95-108); CREATININE 0.8 mg/dL (0.7-1.3); GFR > 60 ML/MIN (>=60 (CALC)); GFR FOR AFR.AMER. > 60 ML/MIN (>=60 (CALC)); POTASSIUM 3.8 mmol/l (3.5-5.1); SGOT/AST 16 u/l (19-48); SODIUM 137 mmol/l (137-146); TOTAL PROTEIN 5.5 g/dL (6.3-8.2)
[2020-10-10 07:38] VITALS: BP 134/79
[2020-10-10 15:01] VITALS: BP 146/85
[2020-10-10 19:00] VITALS: BP 115/71
[2020-10-11] VITALS: BP 134/75
[2020-10-11 04:00] VITALS: BP 156/86
[2020-10-11 05:43] LABS: HEMATOCRIT 29.1 % (39.0-50.0); HEMOGLOBIN 8.5 g/dl (14.0-18.0); IMMATURE GRANULOCYTES 2.9 % (0.0-5.0); MEAN CELL VOLUME 83.6 fL CALC (80.0-100.0); MEAN CORPUSCULAR HGB 24.4 pG CALC (26.0-32.0); MEAN CORPUSCULAR HGB CONC 29.2 g/dL CAL (32.0-36.0); NEUT# 2.74 thou/uL (1.82-7.42); RED BLOOD COUNT 3.48 mill/uL (4.70-6.10); RED CELL DISTRI WIDTH 16.3 % (11.5-15.5)
[2020-10-11 06:11] LABS: ALBUMIN 3.3 g/dL (3.2-5.0); ALKALINE PHOSPHATASE 45 u/l (38-126); ANION GAP 10 (6-22 (CALC)); BILIRUBIN, TOTAL 0.6 mg/dL (0.0-1.4); BUN 21 mg/dL (8-23); BUN/CREATININE RATIO 29 (12-20 (CALC)); CARBON DIOXIDE 28 mmol/l (22-30); CHLORIDE 101 mmol/l (95-108); CREATININE 0.7 mg/dL (0.7-1.3); GFR > 60 ML/MIN (>=60 (CALC)); GFR FOR AFR.AMER. > 60 ML/MIN (>=60 (CALC)); POTASSIUM 3.7 mmol/l (3.5-5.1); SGOT/AST 18 u/l (19-48); SODIUM 135 mmol/l (137-146); TOTAL PROTEIN 5.6 g/dL (6.3-8.2)
[2020-10-11 07:15] VITALS: BP 137/82
[2020-10-11 11:19] VITALS: BP 135/85
[2020-10-11 14:55] VITALS: BP 122/69
[2020-10-11 19:45] VITALS: BP 146/88
[2020-10-12] VITALS: BP 125/74
[2020-10-12 04:00] VITALS: BP 150/74
[2020-10-12 10:30] VITALS: BP 131/67
[2020-10-12] MEDS ORDERED: MEDDOSEPAK PO (11:08)
[2020-10-12] MEDS ORDERED: BACTRIM1 TAB PO (11:08)
== END 2020-10-12 14:51 | disposition home or self-care (01) | DRG 177 ==
PROVIDERS: Emergency Medicine; Nurse Practitioner Family; ADMIT Internal Medicine
DX: J15.6 Pneumonia due to other Gram-negative bacteria (principal); J96.22 Acute and chronic respiratory failure with hypercapnia; J96.21 Acute and chronic respiratory failure with hypoxia; J44.1 Chronic obstructive pulmonary disease with (acute) exacerbation; I48.20 Chronic atrial fibrillation, unspecified; J44.0 Chronic obstructive pulmonary disease with (acute) lower respiratory infection; I95.9 Hypotension, unspecified; D64.9 Anemia, unspecified; I10 Essential (primary) hypertension; I25.10 Atherosclerotic heart disease of native coronary artery without angina pectoris; E03.9 Hypothyroidism, unspecified; F17.220 Nicotine dependence, chewing tobacco, uncomplicated; N40.0 Benign prostatic hyperplasia without lower urinary tract symptoms; Z87.01 Personal history of pneumonia (recurrent); Z79.01 Long term (current) use of anticoagulants; Z20.822 Contact with and (suspected) exposure to COVID-19
CPT/HCPCS: J1756

== ENCOUNTER 2020-11-22 09:32 | Emergency (ER) | payer OTHER, MEDICARE ==
[~2020-11-22 09:32] MED LIST changes: +B-121000 MC4 PO; +BACTRIM1 TAB PO; +DILTIAZEM HCL240 M1 PO; +GARLIC1000 MG PO; +LEVOTHYROXIN100 MC1 PO; +MEDDOSEPAK PO; +MILK THISTLE175 M1 PO; +OMEPRAZOLE DR40 MG PO; +ONE DAILY FOR MEN 50 PO
[2020-11-22] MEDS ORDERED: AUGMENTIN500TAB PO (12:22)
[2020-11-22 12:35] VITALS: BP 123/76
== END 2020-11-22 12:35 | disposition home or self-care (01) | DRG 605 ==
LOC: ED 09:32
DX: S61.451A Open bite of right hand, initial encounter (principal); I10 Essential (primary) hypertension; J44.9 Chronic obstructive pulmonary disease, unspecified; E03.9 Hypothyroidism, unspecified; I48.91 Unspecified atrial fibrillation; W55.01XA Bitten by cat, initial encounter

== ENCOUNTER → 2021-03-22 | Outpatient (REF) ==
[~2021-03-22] MED LIST changes: +AUGMENTIN500TAB PO
== END | disposition home or self-care (01) | DRG 812 ==
LOC: LAB 09:16
PROVIDERS: ATTEND Nurse Practitioner
DX: D50.9 Iron deficiency anemia, unspecified (principal); J96.11 Chronic respiratory failure with hypoxia; D64.9 Anemia, unspecified; E03.9 Hypothyroidism, unspecified; I10 Essential (primary) hypertension; I48.0 Paroxysmal atrial fibrillation; Z12.5 Encounter for screening for malignant neoplasm of prostate

== ENCOUNTER 2021-11-18 06:23 | Emergency (ER) | payer OTHER, MEDICARE ==
[2021-11-18] VITALS (17 sets, daily range): BP systolic 95–111; BP diastolic 51–70
[~2021-11-18] VITALS: Ht 170.2 cm; Wt 55.2 kg
[2021-11-18 07:42] LABS: HEMATOCRIT 37.1 % (39.0-50.0); HEMOGLOBIN 11.9 g/dl (14.0-18.0); IMMATURE GRANULOCYTES 1.3 % (0.0-5.0); MEAN CELL VOLUME 92.5 fL CALC (80.0-100.0); MEAN CORPUSCULAR HGB 29.7 pG CALC (26.0-32.0); MEAN CORPUSCULAR HGB CONC 32.1 g/dL CAL (32.0-36.0); NEUT# 3.45 thou/uL (1.82-7.42); RED BLOOD COUNT 4.01 mill/uL (4.70-6.10); RED CELL DISTRI WIDTH 14.4 % (11.5-15.5)
[2021-11-18 08:05] LABS: ALBUMIN 3.5 g/dL (3.2-5.0); ALKALINE PHOSPHATASE 75 u/l (38-126); ANION GAP 11 (6-22 (CALC)); BILIRUBIN, TOTAL 0.7 mg/dL (0.0-1.4); BUN 17 mg/dL (8-23); BUN/CREATININE RATIO 22 (12-20 (CALC)); CARBON DIOXIDE 23 mmol/l (22-30); CHLORIDE 106 mmol/l (95-108); CREATININE 0.8 mg/dL (0.7-1.3); GFR > 60 ML/MIN (>=60 (CALC)); GFR FOR AFR.AMER. > 60 ML/MIN (>=60 (CALC)); POTASSIUM 4.1 mmol/l (3.5-5.1); SGOT/AST 31 u/l (19-48); SODIUM 136 mmol/l (137-146); TOTAL PROTEIN 6.9 g/dL (6.3-8.2)
[2021-11-18 08:16] LABS: MYOGLOBIN 72 ng/mL (0 - 121)
== END 2021-11-18 11:05 | disposition short-term general hospital (02) | DRG 536 ==
LOC: ED 06:23
PROVIDERS: Emergency Medicine
PROC: 0HQFXZZ Repair Right Hand Skin, External Approach (ICD-10-PCS; principal; 2021-11-18)
PROC: 0HQDXZZ Repair Right Lower Arm Skin, External Approach (ICD-10-PCS; 2021-11-18)
DX: S72.145A Nondisplaced intertrochanteric fracture of left femur, initial encounter for closed fracture (principal); S61.411A Laceration without foreign body of right hand, initial encounter; S51.011A Laceration without foreign body of right elbow, initial encounter; I10 Essential (primary) hypertension; J44.9 Chronic obstructive pulmonary disease, unspecified; E03.9 Hypothyroidism, unspecified; I48.91 Unspecified atrial fibrillation; W18.30XA Fall on same level, unspecified, initial encounter; Y92.009 Unspecified place in unspecified non-institutional (private) residence as the place of occurrence of the external cause; W18.39XA Other fall on same level, initial encounter; D64.9 Anemia, unspecified